=== PATIENT | female | born 1980 | race Caucasian/White ===

== ENCOUNTER 2023-02-16 09:12 | Outpatient (OUT) | payer OTHER, SELFPAY ==
--- NOTE | 2023-02-16 09:22 | MM_ITS ---
Patient Name: DEVYN GUILLEN MR#: [id number] : 1980 Exam Date: 02/16/2023 Ordering Doctor: DR LILY DEAN . RADIOLOGY REPORT PROCEDURE: MM TOMOSYNTHESIS SCREENING BI COMPARISON: MG MAMM SCREEN 3D MACI CAD, 08/17/2021. INDICATIONS: Screening Calculator Name NCI Breast Cancer Risk Assessment Tool 5 Year Breast Cancer Risk 0.70% Lifetime Breast Cancer Risk 12.00% Personal Breast Cancer No Personal Ovarian Cancer No Treatments None Family Cancers None LOCATION: [facility] BREAST COMPOSITION: Scattered areas fibroglandular density. FINDINGS: DIAGNOSTIC CATEGORY 1--NEGATIVE. RIGHT BREAST: No significant suspicious finding. No significant change has occurred. LEFT BREAST: No significant suspicious finding. No significant change has occurred. RECOMMENDATIONS: ROUTINE MAMMOGRAM AND CLINICAL EVALUATION IN 12 MONTHS. PLEASE NOTE: A NORMAL MAMMOGRAM DOES NOT EXCLUDE THE POSSIBILITY OF BREAST CANCER. A CLINICALLY SUSPICIOUS PALPABLE LUMP SHOULD BE BIOPSIED. Dictated by: Kishor Cortez M.D. on 02/16/2023 at 14:11 Approved by: Kishor Cortez M.D. on 02/16/2023 at 14:37
== END 2023-02-16 09:13 | disposition home or self-care (01) ==
LOC: MAMMO 09:12
PROVIDERS: PCP Obstetrics & Gynecology; Visit Provider Obstetrics & Gynecology
DX: Z12.31 Encounter for screening mammogram for malignant neoplasm of breast (principal)
CPT/HCPCS: 77063; 77067

== ENCOUNTER 2024-07-16 11:36 | Emergency (ER) | payer OTHER, SELFPAY ==
[2024-07-16 11:47] VITALS: BP 128/88; PULSE 93; TEMP 36.7; O2SAT 100; BMI 22.4
--- OUTSIDE RECORDS SUMMARY | 2024-07-16 11:49 | XMS_ITS | CCD ---
Author Organization [facility] Care Team Providers Care Sexer Name Role Phone Anne Mckeon Unavailable DR HILARY ORTIZ Primary Care Unavailable DIANNE ., DR BAUTISTA Attending Unavailable DIANNE ., DR BAUTISTA Consulting Unavailable DIANNE ., DR BAUTISTA Admitting Unavailable HILARY ORTIZ Attending Unavailable Medications Current Medications Medication Drug Class(es) Dates Sig (Normalized) Sig (Original) ALPRAZolam (2 sources) Benzodiazepine Xanax Active amoxicillin 875 mg / clavulanate 125 mg oral tablet (1 source) Penicillin-class Antibacterial Start: 06-11-2024 take 1 tablet by mouth every twelve hours Amoxicillin-Pot Clavulanate 875-125 mg tablet Active 1 TAB PO Every 12 hours 26 01June 11, 2024 1:00am fluticasone propionate 0.05 mg/actuat metered dose nasal spray (1 source) Corticosteroid Start: 12-13-2022 take 2 spray(s) nasal route once daily Fluticasone Propionate 50 MCG/ACT 2 sprays Nasally Once a day for 14 day(s) Dec, Active PARoxetine (2 sources) Serotonin Reuptake Inhibitor Paxil Active predniSONE 20 mg oral tablet (1 source) Start: 12-13-2022 take 1 tablet by mouth every twelve hours predniSONE 20 MG 1 tablet Orally bid for 5 day(s) Dec, Active Completed/Discontinued Medications Medication Drug Class(es) Dates Sig (Normalized) Sig (Original) methylPREDNISolone 4 mg oral tablet (2 sources) Corticosteroid Start: 08-31-2021 Medrol 4 MG as directed Orally as directed for 6 days August, Not-Taking Problems Active Problems Problem Classification Problem Date Documented Da te Episodic/Chronic Acute bronchitis (2 sources) Acute bronchitis; Translations: [Acute bronchitis] Episodic Other ear and sense organ disorders (2 sources) Otitis externa of right ear; Translations: [Unspecified otitis externa, right ear] Chronic Other screening for suspected conditions (not mental disorders or infectious disease) (4 sources) Encounter for screening for malignant neoplasm of cervix; Translations: [ENC SCREENING MALIG NEOPLASM CERV] Onset: 08-08-2022 Episodic Other upper respiratory disease (1 source) Seasonal allergy; Translations: [Other seasonal allergic rhinitis] 03-25-2024 Chronic Other upper respiratory infections (2 sources) Sinusitis; Translations: [Chronic infection of sinus NOS] Chronic Other upper respiratory infections (3 sources) Acute sinusitis, unspecified; Translations: [Acute sinusitis caused by virus] Episodic Past or Other Problems Problem Classification Problem Date Documented Da te Episodic/Chronic Allergic reactions (1 source) Unspecified contact dermatitis, unspecified cause Onset: 08-31-2021 Resolved: 08-31-2021 Episodic Results Test Name Value Interpretation Reference Range Facility Influenza virus A and B and SARS-CoV-2 (COVID-19) RNA panel - Respiratory system specon 03-25-2024 Influenza virus A and B RNA and SARS-CoV-2 (COVID-19) N gene panel DANIELLA+probe (Resp) Influenza virus A and B and SARS-CoV-2 (COVID-19) RNA panel - Respiratory system spec [facility] - Microbiology an d Antimicrobial susceptibilityon 03-25-2024 SARS-CoV-2 (COVID-19) RNA DANIELLA+probe Ql (Unsp spec) Negative [facility] No Panel Informationon 03-25 POC Influenza B (DANIELLA) Negative [facility] PAP ACOG PANEL 2: 30 to 65on 08-16-2022 . . Normal [facility] Comment on above: Result Comment: Perf ormed at: WB Performed By: #### [id number] #### [facility] [address] [address] [address] Patricia Conde Age Gdln ACOG Testing 30-65 [facility] Comment on above: Performed By: #### [id number] #### [facility] [address] [address] [address] Patricia Conde DIAGNOSIS: Comment [facility] Comment on above: Result Comment: NEGA TIVE FOR INTRAEPITHELIAL LESION OR MALIGNANCY. Performed at: WB Performed By: #### [id number] #### [facility] [address] [address] [address] Patricia Conde HPV Aptima Negative Normal Negative [facility] Comment on above: Result Comment: This nucleic acid amplification test detects fourteen high-risk HPV types (16,18,31,33,35,39,45,51,52,56,58,59,66,68) without differentiation. Performed at: =G Performed By: #### [id number] #### [facility] [address] [address] [address] Patricia Conde HPV Genotype Reflex Comment Normal [facility] Comment on above: Result Comment: Crit eria not met, HPV Genotype not performed. Performed at: WB Performed By: #### [id number] #### [facility] [address] [place] [address] Dr. Patricia Conde Methodology: Comment Normal [facility] Comment on above: Result Comment: This liquid based ThinPrep(R) pap test was screened with the use of an image guided system. Performed at: WB Performed By: #### [id number] #### [facility] [address] [place] [address] Dr. Patricia Conde Note: Comment Normal [facility] Comment on above: Result Comment: The Pap smear is a screening test designed to aid in the detection of premalignant and malignant conditions of the uterine cervix. It is not a diagnostic procedure and should not be used as the sole means of detecting cervical cancer. Both false-positive and false-negative reports do occur. . Performed at: WB Performed By: #### [id number] #### [facility] [address] [place] [address] Dr. Patricia Conde Performed by: Comment Normal [facility] Comment on above: Result Comment: Fabiola Cornejo, Metal Dresser (ASCP) Performed at: WB Performed By: #### [id number] #### [facility] [address] [place] [address] Dr. Patricia Conde Specimen adequacy: Comment Normal [facility] Comment on above: Result Comment: Sati sfactory for evaluation. No endocervical component is identified. Performed at: WB Performed By: #### [id number] #### [facility] [address] [place] [address] Dr. Patricia Conde Vital Signs Date Time Vital Sign Value Performing Clinician Facility 06-11-2024 17:24-0500 Body height 168.[address] [facility] 06-11-2024 17:24-0500 Body mass index (BMI) [Ratio] 22.7 kg/m2 [facility] 06-11-2024 17:24-0500 Body temperature 98.7 [degF] [facility] 06-11-2024 17:24-0500 Body weight 64.[address] [facility] 06-11-2024 17:24-0500 Diastolic blood pressure 87 mm[Hg] [facility] 06-11-2024 17:24-0500 Heart rate 99 /min [facility] 06-11-2024 17:24-0500 Respiratory rate 16 /min [facility] 06-11-2024 17:24-0500 SaO2% (BldA) [Mass fraction] 97 % [facility] 06-11-2024 17:24-0500 Systolic blood pressure 122 mm[Hg] [facility] 03-25-2024 09:19-0500 Body height 168.[address] [facility] 03-25-2024 09:19-0500 Body mass index (BMI) [Ratio] 22.4 kg/m2 [facility] 03-25-2024 09:19-0500 Body temperature 97.8 [degF] [facility] 03-25-2024 09:19-0500 Body weight 64.[address] [facility] 03-25-2024 09:19-0500 Diastolic blood pressure 95 mm[Hg] [facility] 03-25-2024 09:19-0500 Heart rate 96 /min [facility] 03-25-2024 09:19-0500 Respiratory rate 14 /min [facility] 03-25-2024 09:19-0500 SaO2% (BldA) [Mass fraction] 99 % [facility] 03-25-2024 09:19-0500 Systolic blood pressure 134 mm[Hg] [facility] 12-13-2022 09:30-0400 Body height 170.18 cm Anne Valentinemond Other [facility] Other 12-13-2022 09:30-0400 Body mass index (BMI) [Ratio] 24.4 kg/m2 Anne Linda Other [facility] Other 12-13-2022 09:30-0400 Body temperature 96.3 [degF] Anne Linda Other [facility] Other 12-13-2022 09:30-0400 Body weight 70.67 kg Anne Linda Other [facility] Other 12-13-2022 09:30-0400 Diastolic blood pressure 90 mm[Hg] Anne Linda Other [facility] Other 12-13-2022 09:30-0400 Respiratory rate 18 /min Anne Linda Other [facility] Other 12-13-2022 09:30-0400 SaO2% (BldA) [Mass fraction] 100 % Anne Linda Other [facility] Other 12-13-2022 09:30-0400 Systolic blood pressure 140 mm[Hg] Anne Linda Other [facility] Other 08-31-2021 10:50-0400 Body height 170.18 cm Anne Linda Other [facility] Other 08-31-2021 10:50-0400 Body mass index (BMI) [Ratio] 22.71 kg/m2 Anne Linda Other [facility] Other 08-31-2021 10:50-0400 Body temperature 98.2 [degF] Anne Linda Other [facility] Other 08-31-2021 10:50-0400 Body weight 65.77 kg Anne Linda Other [facility] Other 08-31-2021 10:50-0400 Diastolic blood pressure 85 mm[Hg] Anne Linda Other [facility] Other 08-31-2021 10:50-0400 Respiratory rate 18 /min Anne Mckeon Other [facility] Other 08-31-2021 10:50-0400 SaO2% (BldA) [Mass fraction] 100 % Anne Mckeon Other [facility] Other 08-31-2021 10:50-0400 Systolic blood pressure 123 mm[Hg] Anne Linda Other [facility] Other Encounters Encounter Date Encounter Type Care Provider Facility Start: 06-11-2024 End: 06-11-2024 ambulatory [facility] Work Phone: Start: 06-11-2024 End: 06-11-2024 Patient encounter procedure [facility] Work Phone: Start: 03-25-2024 End: 03-25-2024 Patient encounter procedure [facility] Work Phone: Start: 05-29-2023 End: 05-29-2023 ambulatory HILARY ORTIZ Not Available Start: 12-13-2022 End: 12-13-2022 ambulatory Anne Mckeon Other [facility] Other Start: 12-13-2022 Office outpatient vi sit 15 minutes Anne Mckeon [facility] Start: 08-08-2022 End: 08-08-[address] HILARY ORTIZ Facility:[facility] Start: 08-31-2021 End: 08-31-2021 ambulatory Anne Mckeon Other [facility] Other Start: 08-31-2021 Office outpatient vi sit 15 minutes Anne Mckeon [facility] Payers Date Payer Category Payer Unknown [id number] 1980 Unknown [id number] 1958 Unknown [id number] Unknown [id number] Social History Date Type Detail Facility Unknown if ever smoked [facility] Other Sex Assigned At Sex Assigned At Bir th [facility] Other Start: 03-25-2024 Tobacco smoking status NEIS Smoker (finding) [facility] Start: 06-11-2024 Sex Female (finding) [facility] Start: 1980 Sex Assigned At Female F [facility] Evaluation note 03-25-2024 Note Date & Type Note Facility 03-25-2024 Evaluation note Diagnosis Onset Date Resolution Acute viral sinusitis acute Dec emb2023 9:14am [facility] Work Phone: Evaluation note 12-13-2022 Note Date & Type Note Facility 12-13-2022 Evaluation note Encounter Date Diagnosis Assessment Notes Dec, Acute sinusitis, recurrence not specified, unspecified location (ICD-10 - J01.90) Sinusitis home care material was printed Drink plenty fluids, get plenty of rest. Take the prednisone as prescribed until gone. Use the Flonase inhaler and to your symptoms improved. Continue to take Mucinex and/or Sudafed for congestion. Follow-up with your family physician if no improvement in 2 to 3 days. You may return to work tomorrow [facility] Other Evaluation note 08-31-2021 Note Date & Type Note Facility 08-31-2021 Evaluation note Encounter Date Diagnosis Assessment Notes August, Contact dermatitis, unspecified contact dermatitis type, unspecified trigger (ICD-10 - L25.9) Drink plenty fluids, get plenty of rest. Take Benadryl as needed for itching. Apply cool compresses to the rash for comfort. Take the Medrol Dosepak as prescribed until gone. Follow-up with your family physician if no improvement in 2 to 3 days. August, Other Contact dermatitis home care material was printed [facility] Other History general Narrative - Reported Note Date & Type Note Facility History general Narrative - Reported Type Medical History seasonal allergies Medical History hernia Surgical History c section x2 Surgical History laparoscopy x 2 Surgical History hernia Surgical History hysterectomy Surgical History D&C Hospitalization History see surgical hx [facility] Other Summary Purpose Family History Relationship Condition Age at Onset Recorded Date/T jarett father Heart disease Unknown Unknown Diabetes mellitus Unknown Malignant neoplasm Unknown Hypertension Unknown mother History of stroke Unknown Family history of mental disorder Unknown Heart disease Unknown Advance Directives Advance Directive Response Recorded Date/ Time Advance Directives No March 10:13am Chief Complaint and Reason for Visit Chief Complaint Admit Date sinus pressure/cold, dizziness March 25, 2024 9:14am Congestion June 11, 2024 5:21 pm Reason for Visit Admit Date Acute viral sinusitis March 25 9:14am Additional Source Comments REASON FOR VISIT (unrecogniz ed section and content) RASH POSS BUG BITES ON ARMSS INUS INFECTION INFORMATION SOURCE (unrecogn ized section and content) DATE CREATED AUTHOR 08/17/2022 [facility] DATE CREATED AUTHOR 'S ORGANIZ ATION 05/30/2023 [facility] Care Teams (unrecognized sec tion and content) Team Status: Active Member Role Status Dates Hilary Ortiz MD Primary Care Provider Active Team Status: Inactive Member Role Status Dates Hilary Ortiz MD Primary Care Provider Active S tart: March 25, 2024 End: March 25, 2024 Norma Nickerson APRN Attending Provider Active Start: March 25, 2024 End: March 25, 2024 Team Status: Inactive Member Role Status Dates Hilary Ortiz MD Primary Care Provider Active S tart: June 11, 2024 End: June 11, 2024 Norma Nickerson APRN Attending Provider Active Start: June 11, 2024 End: June 11, 2024 Goals (unrecognized section and content) Goals may be documented in a n alternate section FOR RECORDS PERTAINING TO PATIENTS WHO ARE OR HAVE BEEN ENROLLED IN A CHEMICAL DEPENDENCY/SUBSTANCEABUSE PROGRAM, SOME INFORMATION MAY BE OMITTED. This clinical summary was aggregated from multiple sources. Caution should be exercised in using it in the provision of clinical care. This summary normalizes information from multiple sources, and as a consequence, information in this document may materially change the coding, format and clinical context of patient data. In addition, data may be omitted in some cases. CLINICAL DECISIONS SHOULD BE BASED ON THE PRIMARY CLINICAL RECORDS. [facility]. provides no warranty or guarantee of the accuracy or completeness of information in this document.
[2024-07-16 12:33] LABS: Glucometer 88 mg/dL (74-106)
--- NOTE | 2024-07-16 12:38 | ED.GENADUL1 ---
HPI HPI - General Adult General Chief complaint: Weakness Stated complaint: GENERAL WEAKNESS Time Seen by Provider: 07/16/24 11:50 Source: patient and family Mode of arrival: walk-in Limitations: no limitations History of Present Illness HPI narrative: Patient presents to the ED complaining of feeling shaky and feeling like her blood sugar was low. She said yesterday she had this happen where she felt like her blood sugar dipped and she got shaky and lightheaded. She also had this happen again today her blood sugar she felt like dipped she was shaky a little sweaty and lightheaded. She checked her blood sugar on her fingerstick and it was reading at 100. She came in for evaluation because it has happened now 2 days in a row. She states she is not diabetic but she does have history of hypoglycemia attack. She said she has been eating and drinking normally is not in any distress she has not been vomiting or having diarrhea. She denies any UTI symptoms. She does report some mild nasal congestion and attributes this to seasonal allergies. Denies any chance of as she has had a hysterectomy. Her blood sugar here on fingerstick was reading at 88. No other complaints at this time Related Data Allergies Allergy/AdvReac Type Severity Reaction Status Date / Time No Known Drug Allergies Allergy Verified 07/16/24 11:49 Opioid HPI Opioid Management Most Recent Opioid Data: No Data to Display Review of Systems ROS Status of ROS 10 or more systems reviewed and unremarkable except as noted in history and below PFSH PFSH Social History Little interest or pleasure in doing things: not at all Feeling down, depressed, or hopeless: not at all Exam Narrative Exam Narrative: Time Seen: [] Vital Signs: [Per nurse's notes.] General: [Alert] Skin: [Warm, dry, no rash.] Head: [Normocephalic, atraumatic.] Neck: [Supple, trachea midline.] Eye: [Pupils are equal, round and reactive to light, extraocular movements are intact, normal conjunctiva.] Ears, nose, mouth and throat: oral mucosa moist. Cardiovascular: [Regular rate and rhythm, no murmur.] Respiratory: [Lungs are clear to auscultation, respirations are non-labored, breath sounds are equal.] Chest wall: [No tenderness, no deformity.] Gastrointestinal: [Soft, nontender, non distended, normal bowel sounds.] MSK: 5 out of 5 muscle strength x 4 extremities no calf pain or edema Lymphatics: [No lymphadenopathy.] Psychiatric: [Cooperative, appropriate mood & affect.] Neurological: [Alert and oriented to person, place, time, and situation, no focal neurological deficit observed.] Constitutional Vital Signs, click to edit/add: Last Vital Signs Temp 98.1 F 07/16/24 11:47 Pulse 78 07/16/24 13:33 Resp 16 07/16/24 13:33 BP 111/84 07/16/24 13:33 Pulse Ox 99 07/16/24 13:33 O2 Del Method Room Air 07/16/24 13:33 Course Vital Signs Vital signs: Vital Signs Temperature 98.1 F 07/16/24 11:47 Pulse Rate 93 H 07/16/24 11:47 Respiratory Rate 16 07/16/24 11:47 Blood Pressure 128/88 07/16/24 11:47 Pulse Oximetry 100 07/16/24 11:47 Oxygen Delivery Method Room Air 07/16/24 11:47 Temperature 98.1 F 07/16/24 11:47 Pulse Rate 78 07/16/24 13:33 Respiratory Rate 16 07/16/24 13:33 Blood Pressure 111/84 07/16/24 13:33 Pulse Oximetry 99 07/16/24 13:33 Oxygen Delivery Method Room Air 07/16/24 13:33 Medical Decision Making MDM Narrative Medical decision making narrative: Patient is feeling better after eating. Her blood sugar was normal here. Patient's labs are stable. Vital signs are stable. I do not see any other acute issue here today. Return to ED if worsening symptoms or reoccurring symptoms otherwise follow-up with family doctor outpatient. Patient is comfortable with care plan for home. Differential Diagnosis Differential Diagnosis: Hypoglycemia, infection, electrolyte abnormality Lab Data Lab results reviewed: Yes I reviewed the patient's lab results Labs: Lab Results 07/16/24 07/16/24 07/16/24 Range/Units 12:31 12:35 12:45 WBC 9.3 (4.0-11.0) 10^3/uL RBC 4.44 (4.20-5.40) 10^6/uL Hgb 14.0 (12.0-16.0) g/dL Hct 39.2 (36.0-48.0) % MCV 88.3 (81.0-99.0) fL MCH 31.5 (26.7-34.0) pg MCHC 35.7 H (29.9-35.2) g/dL RDW 11.5 (11.0-15.0) % Plt Count 215 (150-450) 10^3/uL MPV 10.0 (9.5-13.5) fL Neut % (Auto) 72.2 (43.0-75.0) % Lymph % (Auto) 20.7 (20.5-60.0) % [place] % (Auto) 5.2 (1.7-12.0) % Eos % (Auto) 1.1 (0.9-7.0) % Baso % (Auto) 0.5 (0.2-2.0) % Neut # (Auto) 6.7 H (1.4-6.5) 10^3/uL Lymph # (Auto) 1.9 (1.2-3.8) 10^3/uL [place] # (Auto) 0.5 (0.3-0.8) 10^3/uL Eos # (Auto) 0.1 (0.0-0.7) 10^3/uL Baso # (Auto) 0.1 (0.0-0.1) 10^3/uL Abs Immat Gran (auto) 0.03 (0.00-0.03) 10^3/uL Imm/Tot Granulo (auto) 0.3 (0.0-0.5) % Sodium 141 (136-145) mmol/L Potassium 3.9 (3.5-5.1) mmol/L Chloride 105 (98-107) mmol/L Carbon Dioxide 27.7 (21.0-32.0) mmol/L Anion Gap 12.2 BUN 9.0 (7.0-18.0) mg/dL Creatinine 0.80 (0.55-1.02) mg/dL Est GFR ( Amer) >60 (>=60 mL/min/1.73m^2) Est GFR (Non-Af Amer) >60 (>=60 mL/min/1.73m^2) BUN/Creatinine Ratio 11.2 Glucose 92 (74-106) mg/dL Calcium 8.8 (8.5-10.1) mg/dL Urine Color Lt. yellow (YELLOW) Urine Clarity Clear (CLEAR) Urine pH 6.0 (5.0-9.0) Ur Specific [place] 1.010 (1.005-1.025) Urine Protein Negative (NEG/TRACE) mg/dL Urine Glucose (UA) Negative (NEGATIVE) mg/dL Urine Ketones Negative (NEGATIVE) mg/dL Urine Occult Blood Negative (NEGATIVE) Urine Nitrite Negative (NEGATIVE) Urine Bilirubin Negative (NEGATIVE) Urine Urobilinogen 0.2 (0.2-1.0) EU/dL Ur Leukocyte Esterase Negative (NEGATIVE) Urine RBC None seen (0-2) #/HPF Urine WBC 0-2 A (NONE SEEN) #/HPF Ur Squamous Epith Cells Rare (NONE/RARE) #/LPF Urine Crystals None seen (None Seen) #/HPF Urine Bacteria Trace A (NONE SEEN) #/HPF Urine Casts None seen (NONE SEEN) #/LPF Urine Mucus None seen (NONE SEEN) Ur Culture Indicated? No POC Glucose 88 (74-106) mg/dL Discharge Plan Discharge Chief Complaint: Weakness Clinical Impression: Hypoglycemia Patient Disposition: Home, Self-Care Time of Disposition Decision: 13:56 Condition: Good Mode of Transportation: Private Vehicle Print Language: Telugu Instructions: Non-diabetic Hypoglycemia (ED) Referrals: HILARY ORTIZ [Primary Care Provider] - 1 week Discharge Date/Time: 07/16/24 14:15
[2024-07-16 12:51] LABS: Basophils Absolute Auto 0.1 10^3/uL (0.0-0.1); Basophils Percent Auto 0.5 % (0.2-2.0); Eosinophils Absolute Auto 0.1 10^3/uL (0.0-0.7); Eosinophils Percent Auto 1.1 % (0.9-7.0); Hematocrit 39.2 % (36.0-48.0); Immature Granulocytes Abs Auto 0.03 10^3/uL (0.00-0.03); Immature Granulocytes Pct Auto 0.3 % (0.0-0.5); Lymphocytes Absolute Auto 1.9 10^3/uL (1.2-3.8); Lymphocytes Percent Auto 20.7 % (20.5-60.0); Mean Corpuscular HGB Conc 35.7 g/dL (29.9-35.2); Mean Corpuscular Hemoglobin 31.5 pg (26.7-34.0); Mean Corpuscular Volume 88.3 fL (81.0-99.0); Monocytes Absolute Auto 0.5 10^3/uL (0.3-0.8); Monocytes Percent Auto 5.2 % (1.7-12.0); Neutrophils Absolute Auto 6.7 10^3/uL (1.4-6.5); Neutrophils Percent Auto 72.2 % (43.0-75.0); Platelet Count 215 10^3/uL (150-450); Red Blood Count 4.44 10^6/uL (4.20-5.40); Red Cell Distribution Width 11.5 % (11.0-15.0); White Blood Count 9.3 10^3/uL (4.0-11.0)
[2024-07-16 12:53] LABS: Bilirubin Urine NEGATIVE (NEGATIVE); Blood Urine NEGATIVE (NEGATIVE); Clarity Urine CLEAR (CLEAR); Color Urine LT. YELLOW (YELLOW); Glucose Urine UA NEGATIVE (NEGATIVE); Ketones Urine NEGATIVE (NEGATIVE); Leukocyte Esterase Urine NEGATIVE (NEGATIVE); Nitrite Urine NEGATIVE (NEGATIVE); Protein Urine NEGATIVE (NEG/TRACE); Urobilinogen Urine 0.2 EU/dL (0.2-1.0)
[2024-07-16 13:00] LABS: Bacteria Urine TRACE #/HPF (NONE SEEN); Cast Seen? NONE SEEN #/LPF (NONE SEEN); Crystals Seen? None Seen #/HPF (None Seen); Mucus Urine NONE SEEN (NONE SEEN); RBC Urine NONE SEEN #/HPF (0-2); Squamous Epithelial Cell Urine RARE #/LPF (NONE/RARE); Urine Culture Indicated NO; WBC Urine 0-2 #/HPF (NONE SEEN)
[2024-07-16 13:03] LABS: Anion Gap 12.2; BUN Creatinine Ratio 11.2; Calcium 8.8 mg/dL (8.5-10.1); Carbon Dioxide 27.7 mmol/L (21.0-32.0); Chloride 105 mmol/L (98-107); Estimated GFR (African America >60 (>=60 mL/min/1.73m^2); Estimated GFR (Non-African Ame >60 (>=60 mL/min/1.73m^2); Glucose 92 mg/dL (74-106); Potassium 3.9 mmol/L (3.5-5.1); Sodium 141 mmol/L (136-145)
[2024-07-16 13:33] VITALS: BP 111/84; PULSE 78; O2SAT 99
== END 2024-07-16 14:15 | disposition home or self-care (01) ==
PROVIDERS: Emergency Provider Emergency Medicine; PCP Family Medicine
DX: E16.2 Hypoglycemia, unspecified (principal); Z90.710 Acquired absence of both cervix and uterus
CPT/HCPCS: 36415; 80048; 81001; 85025; 99284